=== PATIENT | female | born 1980 | race Caucasian/White ===

== ENCOUNTER 2024-03-19 06:11 | Emergency (ER) | payer OTHER, SELFPAY ==
[2024-03-19 06:19] VITALS: BP 120/55
[2024-03-19 07:02] VITALS: BP 103/65
[2024-03-19 07:08] LABS: % Basophils 0.7 % (0-2); % Immature Granulocytes 0.2 % (0-0.5); % Lymphocytes 35.6 % (20.5-51.1); % Monocytes 8.8 % (1.7-9.3); % Neutrophils 52.7 % (42.2-75.2); Absolute Eosinophils 0.1 10^3/uL (0-0.7); Absolute Monocytes 0.5 10^3/uL (0.1-0.6); Absolute Neutrophils 2.9 10^3/uL (1.4-6.5); Hematocrit 30.5 % (37.0-47.0); Hemoglobin 10.3 g/dL (12.0-16.0); Mean Corp Hgb Conc. 33.8 g/dL (33.0-37.0); Mean Corpuscular Hgb 28.2 pg (27.0-31.0); Mean Corpuscular Volume 83.6 fL (81.0-99.0); Mean Platelet Volume 10.9 fL (7.4-10.4); Nucleated Red Blood Cells % 0 %; Platelet Count 241 10^3/uL (130-400); Red Blood Cell Count 3.65 10^6/uL (4.20-5.40); Red Cell Dist. Width 13.2 % (11.5-14.5); White Blood Cell Count 5.5 10^3/uL (4.8-10.8)
[2024-03-19 07:21] LABS: HCG, Serum Qualitative Screen Negative
[2024-03-19 07:26] LABS: ALT (SGPT) 17 U/L (0-35); AST (SGOT) 22 U/L (14-36); Alkaline Phosphatase 48 U/L (38-126); Blood Urea Nitrogen 21 mg/dl (7-17); Calcium 8.8 mg/dl (8.4-10.2); Carbon Dioxide 25 mmol/L (22-30); Chloride 107 mmol/L (98-107); Glucose 105 mg/dl (70-99); Potassium 3.9 mmol/L (3.5-5.1); Sodium 138 mmol/L (135-145); Total Bilirubin 0.4 mg/dl (0.2-1.3); Total Protein 6.2 g/dl (6.3-8.2); eGFR > 60.00
--- NOTE | 2024-03-19 07:33 | ED.GENMED ---
History of Present Illness
<Percy Curry MD, Resident - Last Filed: 03/19/24 12:09>
General
Chief Complaint: Chest Pain
Time Seen by Provider: 03/19/24 07:15
History of Present Illness
History of Present Illness:
Patient is a 43-year-old female presented to the ED with chest pain and on her left side radiating to her left shoulder blade. Patient states that she had pain has been going on since , 03/15. Pain is intermittent, non-positional, squeezing
type of pain only over left chest. She denies any shortness of breath, palpitations, abdominal pain, constipation, diarrhea. She is on her cycles currently. Patient states that on Tuesday night she the pain woke her up from sleep twice. She had
a dinner around 630 to 7 pm. She went to sleep early and woke up around 230 to 3 am due to chest pain. She had some crackles thinking that it might help with the pain but it did not. She went back to sleep again and woke up in like the next 2
hours with left side chest pain. Patient has tried Pepcid which was not helpful.
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
Past History
<Percy Curry MD, Resident - Last Filed: 03/19/24 12:09>
Past History
ED Past Medical History: None
ED Past Surgical History: None
Social History
Tobacco: Non-smoker
Alcohol: Occasional
Drug: None
Personal:
Living: with family
Employment: Employed
Phy Exam
<Percy Curry MD, Resident - Last Filed: 03/19/24 12:09>
Physical Exam
Physical Exam:
no apparent distress
Scores
<Percy Curry MD, Resident - Last Filed: 03/19/24 12:09>
Heart Score for Chest Pain Patients
STEMI patient?: No
History: Slightly or Non-Suspicious
ECG: Normal
Age: </= 45 years
Risk Factors: No Risk Factors
Troponin: </= Normal Limit
Heart Score for Chest Pain Patients: 0
Heart Score Risk: 2.5% MACE over next 6 weeks
<Abdon Montero MD - Last Filed: 03/19/24 17:08>
Heart Failure Risk
Heart Failure Risk Score: Not Applicable
Heart Score for Chest Pain Patients
Heart Score for Chest Pain Patients: 0
Heart Score Risk: 2.5% MACE over next 6 weeks
Withdrawal Assessment of Alcohol
Withdrawal Assessment Completed?: Not applicable
Course
<Percy Curry MD, Resident - Last Filed: 03/19/24 12:09>
Orders/Labs/Results
Orders:
Orders
03/19/24 06:12
Electrocardiogram (*1) Urgent
Reason for Study: Chest Pain
03/19/24 06:13
EKG- Treatment ONCE
03/19/24 07:00
Test Result ONCE
03/19/24 07:01
Complete Blood Count/With Diff Urgent
Comprehensive Metabolic Panel Urgent
HCG, Serum Qualitative Screen Urgent
Troponin I Urgent
03/19/24 07:30
0.9% Sodium Chloride 500 ml [Nss] 500 ml IV BOLUS
03/19/24 08:06
CR Chest - 2 Views Urgent
Comment:
Reason For Exam: chest pain
03/19/24 09:02
D-Dimer Urgent
03/19/24 11:07
Troponin I Urgent
Abnormal Lab Results
03/19/24
07:01
RBC 3.65 L 10^6/uL
(4.20-5.40)
Hgb 10.3 L g/dL
(12.0-16.0)
Hct 30.5 L %
(37.0-47.0)
MPV 10.9 H fL
(7.4-10.4)
BUN 21 H mg/dl
(7-17)
Glucose 105 H mg/dl
(70-99)
Total Protein 6.2 L g/dl
(6.3-8.2)
03/19/24 07:01
03/19/24 07:01
Vital Signs
Initial and Last Documented VS:
Initial Vital Signs
Temp Pulse Resp BP Pulse Ox
36.3 C 60 18 120/55 98
03/19/24 06:19 03/19/24 06:19 03/19/24 06:19 03/19/24 06:19 03/19/24 06:19
Last Documented Vital Signs
Temp Pulse Resp BP Pulse Ox
36.3 C 54 18 103/56 100
03/19/24 06:19 03/19/24 12:25 03/19/24 12:25 03/19/24 12:25 03/19/24 12:25
<Abdon Montero MD - Last Filed: 03/19/24 17:08>
Orders/Labs/Results
Orders:
Orders
03/19/24 06:12
Electrocardiogram (*1) Urgent
Reason for Study: Chest Pain
03/19/24 06:13
EKG- Treatment ONCE
03/19/24 07:00
Test Result ONCE
03/19/24 07:01
Complete Blood Count/With Diff Urgent
Comprehensive Metabolic Panel Urgent
HCG, Serum Qualitative Screen Urgent
Troponin I Urgent
03/19/24 07:30
0.9% Sodium Chloride 500 ml [Nss] 500 ml IV BOLUS
03/19/24 08:06
CR Chest - 2 Views Urgent
Comment:
Reason For Exam: chest pain
03/19/24 09:02
D-Dimer Urgent
03/19/24 11:07
Troponin I Urgent
Abnormal Lab Results
03/19/24
07:01
RBC 3.65 L 10^6/uL
(4.20-5.40)
Hgb 10.3 L g/dL
(12.0-16.0)
Hct 30.5 L %
(37.0-47.0)
MPV 10.9 H fL
(7.4-10.4)
BUN 21 H mg/dl
(7-17)
Glucose 105 H mg/dl
(70-99)
Total Protein 6.2 L g/dl
(6.3-8.2)
03/19/24 07:01
03/19/24 07:01
Vital Signs
Initial and Last Documented VS:
Initial Vital Signs
Temp Pulse Resp BP Pulse Ox
36.3 C 60 18 120/55 98
03/19/24 06:19 03/19/24 06:19 03/19/24 06:19 03/19/24 06:19 03/19/24 06:19
Last Documented Vital Signs
Temp Pulse Resp BP Pulse Ox
36.3 C 54 18 103/56 100
03/19/24 06:19 03/19/24 12:25 03/19/24 12:25 03/19/24 12:25 03/19/24 12:25
<Percy Curry MD, Resident - Last Filed: 03/19/24 12:09>
*Critical Care Note
Total Time (30-74mins, 75-104mins- exclusive of procedures): Not Applicable
<Abdon Montero MD - Last Filed: 03/19/24 17:08>
*Pulse Oximetry
Patient hypoxic: no
*EKG
Interpreted by ED Provider?: Yes
Heart Rate: 67
Rate: normal
Rhythm: sinus
[place]: normal axis
Interval: normal interval
QRS Pattern: normal QRS
Ischemia: no ischemia
<Percy Curry MD, Resident - Last Filed: 03/19/24 12:09>
Update Note
Update Note:
43-year-old female presented to the ED with chest pain.
D/D for chest pain:
-Suspect that this could be
#1 GERD
#2 musculoskeletal pain (costochondritis)-less likely, no tenderness,
#3 Angina less likely
#4 PE less likely
PLAN:
-EKG shows normal sinus rhythm
-Troponin is within normal limits. Will trend troponin
-D-dimer negative
-Chest x-ray negative for PNA.
-All the tests are unremarkable. Vitals are stable .
Repeat troponin normal
- Patient is ok to discharge.
- Return to ED with return of symptoms.
- Also f/u with outpatient PCP.
ED Attending Note
<Percy Curry MD, Resident - Last Filed: 03/19/24 12:09>
-
Portions of this chart may have been created with voice recognition software.� Occasional wrong word or��sound alike� substitutions may have occurred due to the inherent limitations of voice recognition software.
<Abdon Montero MD - Last Filed: 03/19/24 17:08>
ED Attending Note
Patient seen and examined by attending physician: Yes
ED Attending Note:
I have seen and evaluated the patient with a [id number] encounter. I have spoken to the resident and involved in the medical history, the physical exam, medical decision making.
Evaluation and management service: agree unless noted differently below.
Results interpretation: agree unless noted differently below.
Focused HPI: 43-year-old female presents for evaluation of chest pain. Patient reports onset of symptoms and they have been intermittent since that time although she says more constant over the past 48 hours. She reports a vague tightness
in the left chest that radiates towards the shoulder. She has had very mild cough which is nonproductive. Denies shortness of breath. Denies any nausea or vomiting. Denies abdominal pain. She denies any fevers or chills. Denies any swelling or
pain in the legs. Denies any known cardiac history. She has tried multiple things including her normal rescue inhaler thinking that her symptoms could be related to asthma�this did not help. She also tried [id number] antacid and PPI without
improvement. She does note specifically that there is no exertional component to her symptoms and that she typically exercises on a regular basis without any chest pain.
Physical exam: Awake alert not in distress. Vital signs normal. No cardiac murmurs. Lungs clear to auscultation bilaterally. No reproducible chest wall tenderness. Abdomen soft and nontender to deep palpation. No lower extremity edema or
tenderness. Good strong pulses in all extremities.
Medical Decision Makin-year-old female presents for evaluation of atypical nonexertional chest pain for the past few days. Vital signs normal. Exam as above. EKG no ischemic changes. Will check labs including CBC and a CMP. Will check
troponins. Check D-dimer. Check chest x-ray. Monitor and reassess after the above.
Labs reviewed: CBC shows stable anemia, CMP no clinically significant abnormalities. Troponin is negative x 2. D-dimer negative. Chest x-ray shows no acute disease. Low suspicion for emergent pathology. Will provide referral to cardiology for
outpatient testing and an abundance of caution but symptoms sound likely noncardiac. Will also have her follow-up with her PCP.
Discharge Plan
Departure
Patient Disposition: Home (Routine Discharge)
Date of Disposition: 03/19/24
Time of Disposition: 12:03
Patient with high blood pressure during this ER visit?: No
Discharge Problem:
chest pain, Chest pain
Instructions: Chest Pain CBC Follow Up
Prescriptions:
No Action
Albuterol
2 puff inhalation Q4HPRN PRN (Reason: wheezing)
Vitamins
1 tab PO DAILY
Lexapro:
10 mg PO R Q48H
Vitamin C
1,000 mg PO DAILY
fluticasone propionate 1 SPRAY spray,suspension
2 spray intranasal DAILY
oxycodone-acetaminophen 5 MG/325 MG tablet
1 tab PO Q4HPRN PRN (Reason: moderate pain) Qty: 7 0RF
ibuprofen 600 MG tablet
600 mg PO Q4HPRN PRN (Reason: cramps) Qty: 100 0RF
Referrals:
Justen Lindquist MD [Family Provider] -
Casandra Villagomez MD [Active] - Call in 1-3 days for appt
Activity Restrictions/Additional Instructions:
Thank you for visiting the Emergency Department at [facility].
1. Please schedule a follow up appointment as directed. Call first thing tomorrow morning to make an appointment.
2. If indicated, please take your medications as instructed and indicated on discharge paperwork.
3. If any of your symptoms do not improve, or persist, or become more severe within 6-12 hours, please return to the emergency department for further care.
4. Please return to the emergency department if you develop a headache, neck pain/stiffness, fever greater than 100.4F, chest pain, shortness of breath, persistent nausea, vomiting, slurred speech, difficulty walking, numbness/tingling, weakness,
signs of infection or any other symptoms that are worrisome to you.
Please call [phone] if you have any questions.
Interventions
Interventions:
*Risk Screen - Suicide Last Done: 03/19/24 06:19
*General Assessment Last Done: 03/19/24 07:00
*Neglect/Abuse Screening Last Done: 03/19/24 06:19
ED- Fall Risk Assessment Last Done: 03/19/24 07:00
*ED COVID-19 Vaccine History Last Done: 03/19/24 07:00
*Nursing Disposition Last Done: 03/19/24 12:24
ED- Cardiac Assessment Last Done: 03/19/24 07:00
Discharge Date and Time
Discharge Date/Time: 03/19/24 12:25
Print Language: MICRONESIAN
[2024-03-19 07:35] LABS: Troponin I < 0.012 ng/ml
[2024-03-19 08:00] VITALS: BP 111/64
[2024-03-19] MEDS: NSS 500 IV (09:08)
[2024-03-19 10:00] VITALS: BP 104/61
[2024-03-19 10:05] LABS: D-Dimer < 0.27 ug/mlFEU (0.00-0.50)
[2024-03-19 11:00] VITALS: BP 109/53
[2024-03-19 11:56] LABS: Troponin I < 0.012 ng/ml
[2024-03-19 12:25] VITALS: BP 103/56
== END 2024-03-19 12:25 | disposition home or self-care (01) ==
LOC: EMR 06:11
PROVIDERS: EMERGENCY PHYSICIAN Emergency Medicine; FAMILY PHYSICIAN Family Medicine
DX: R07.89 Other chest pain (principal)
CPT/HCPCS: 99283; 71046; 80053; 84484; 84703; 85025; 85379; 93005

== ENCOUNTER → 2024-05-04 09:06 | Outpatient (REF) | payer OTHER, SELFPAY | LOC: HWRCS 09:06 | PROVIDERS: ATTENDING PHYSICIAN Internal Medicine Cardiovascular Disease; FAMILY PHYSICIAN Family Medicine | DX: R07.89 Other chest pain (principal) | CPT/HCPCS: 93306 ==

== ENCOUNTER → 2024-06-01 09:11 | Outpatient (REF) | payer OTHER, SELFPAY | LOC: HWRAD 09:11 | PROVIDERS: ATTENDING PHYSICIAN Student in an Organized Health Care Education/Training Program; FAMILY PHYSICIAN Family Medicine | DX: Z30.431 Encounter for routine checking of intrauterine contraceptive device (principal) | CPT/HCPCS: 76830; 76856 ==

== ENCOUNTER → 2024-08-10 13:20 | Outpatient (REF) | payer OTHER, SELFPAY | LOC: HWWDC 13:20 | PROVIDERS: ATTENDING PHYSICIAN Student in an Organized Health Care Education/Training Program; FAMILY PHYSICIAN Family Medicine | DX: Z12.31 Encounter for screening mammogram for malignant neoplasm of breast (principal) | CPT/HCPCS: 77063; 77067 ==

== ENCOUNTER → 2024-08-24 08:46 | Outpatient (REF) | payer OTHER, SELFPAY | LOC: HWRAD 08:46 | PROVIDERS: ATTENDING PHYSICIAN Otolaryngology; FAMILY PHYSICIAN Family Medicine | DX: J32.4 Chronic pansinusitis (principal) | CPT/HCPCS: 70486 ==

== ENCOUNTER 2024-11-09 09:57 | Outpatient (RCR) | payer OTHER, SELFPAY | END 2024-11-09 23:59 | disposition home or self-care (01) | LOC: RPT 09:57 | PROVIDERS: ATTENDING PHYSICIAN Obstetrics & Gynecology; FAMILY PHYSICIAN Family Medicine | DX: N39.3 Stress incontinence (female) (male) (principal); R39.14 Feeling of incomplete bladder emptying; M62.89 Other specified disorders of muscle; N81.11 Cystocele, midline; N81.6 Rectocele; Z73.6 Limitation of activities due to disability | CPT/HCPCS: 97110; 97112; 97140; 97162; 97530 ==

== ENCOUNTER 2024-11-16 08:53 | Outpatient (RCR) | payer OTHER, SELFPAY | END 2024-11-16 23:59 | disposition home or self-care (01) | LOC: RPT 08:53 | PROVIDERS: ATTENDING PHYSICIAN Obstetrics & Gynecology; FAMILY PHYSICIAN Family Medicine | DX: N39.3 Stress incontinence (female) (male) (principal); R39.14 Feeling of incomplete bladder emptying; M62.89 Other specified disorders of muscle; N81.11 Cystocele, midline; N81.6 Rectocele; Z73.6 Limitation of activities due to disability | CPT/HCPCS: 97014; 97112; 97140; 97530 ==

== ENCOUNTER 2025-01-04 14:53 | Outpatient (RCR) | payer OTHER, SELFPAY | END 2025-01-04 23:59 | disposition home or self-care (01) | LOC: RPT 14:53 | PROVIDERS: ATTENDING PHYSICIAN Obstetrics & Gynecology; FAMILY PHYSICIAN Family Medicine | DX: N39.3 Stress incontinence (female) (male) (principal); R39.14 Feeling of incomplete bladder emptying; M62.89 Other specified disorders of muscle; N81.11 Cystocele, midline; N81.6 Rectocele; Z73.6 Limitation of activities due to disability | CPT/HCPCS: 97110; 97112; 97140; 97530 ==

== ENCOUNTER 2025-02-08 12:52 | Outpatient (RCR) | payer OTHER, SELFPAY | END 2025-02-08 23:59 | disposition home or self-care (01) | LOC: RPT 12:52 | PROVIDERS: ATTENDING PHYSICIAN Obstetrics & Gynecology; FAMILY PHYSICIAN Family Medicine | DX: N39.3 Stress incontinence (female) (male) (principal); R39.14 Feeling of incomplete bladder emptying; M62.89 Other specified disorders of muscle; N81.11 Cystocele, midline; N81.6 Rectocele; Z73.6 Limitation of activities due to disability | CPT/HCPCS: 97014; 97110; 97112; 97140; 97530 ==

== ENCOUNTER 2025-02-22 13:58 | Outpatient (RCR) | payer OTHER, SELFPAY | END 2025-02-22 23:59 | disposition home or self-care (01) | LOC: RPT 13:58 | PROVIDERS: ATTENDING PHYSICIAN Obstetrics & Gynecology; FAMILY PHYSICIAN Family Medicine | DX: N39.3 Stress incontinence (female) (male) (principal); R39.14 Feeling of incomplete bladder emptying; M62.89 Other specified disorders of muscle; N81.11 Cystocele, midline; N81.6 Rectocele; Z73.6 Limitation of activities due to disability | CPT/HCPCS: 97014; 97112; 97140; 97530 ==